=== PATIENT | female | born 1990 ===

== ENCOUNTER 2017-11-03 13:05 | Inpatient (IN) | payer OTHER ==
[2017-11-03] MEDS ORDERED: ELECTROLYTE-148 SOLN 1,000 ML IV SCH (13:30)
[2017-11-03] MEDS ORDERED: AMPICILLIN - 2 GM in SODIUM CHLORIDE 100 ML IVPB ONE (13:30)
[2017-11-03] MEDS ORDERED: AMPICILLIN SODIUM 2 GM VIAL ONE (13:39)
[2017-11-03] MEDS ORDERED: OXYTOCIN 20 UNITS in 0.9% NS 20 UNIT/1,000 ML INFUS.BAG IV ONE ×2 (13:43→14:13)
[2017-11-03] MEDS ORDERED: LIDOCAINE HCL 1% PRESERVATIVE FREE - 30ML VIAL ONE (13:44)
[2017-11-03 14:21] VITALS: BMI 24.8
[2017-11-03] MEDS: OXYTOCIN 20 UNITS in 0.9% NS 20 UNIT/1,000 ML INFUS.BAG IV SCH ×2 (14:30→16:00)
[2017-11-03] MEDS ORDERED: IBUPROFEN 600 MG TABLET (FP) PO ONE (14:39)
[2017-11-03] MEDS ORDERED: ACETAMINOPHEN 325 MG TABLET (FP) ONE (14:39)
[2017-11-03] MEDS: IBUPROFEN 600 MG TABLET (FP) PO PRN (14:45)
[2017-11-03] MEDS: ACETAMINOPHEN 325 MG TABLET (FP) PO PRN (14:45)
[2017-11-03] MEDS ORDERED: BENZOCAINE 20% 57 GM BOTTLE TP PRN (14:57)
[2017-11-03] MEDS ORDERED: BISACODYL 10 MG SUPP.RECT RC PRN (14:57)
[2017-11-03] MEDS ORDERED: oxyCODONE HCL 5 MG TABLET PO PRN (14:57)
[2017-11-03] MEDS ORDERED: METHYLERGONOVINE MALEATE 0.2 MG/1 ML AMP IM PRN (14:57)
[2017-11-03] MEDS ORDERED: BENZOCAINE 28 GM HEMORRHOIDAL OINTMENT TP PRN (14:57)
[2017-11-03] MEDS ORDERED: WITCH HAZEL 50% (TUCKS) 40 PAD/JAR PAD TP PRN (14:57)
[2017-11-03 15:05] LABS: ARTERIAL BLOOD GAS pH 7.31 (7.35-7.45)
[2017-11-03 15:06] LABS: ARTERIAL BLD GAS O2 SATURATION 16.5 % (90-98.9); ARTERIAL BLOOD GAS BASE EXCESS -1.1 meq/l (-2-2); ARTERIAL BLOOD GAS PCO2 52.2 mmHg (35-45); ARTERIAL BLOOD GAS PO2 16.5 mmHg (80-100)
[2017-11-03 15:07] LABS: VENOUS PC02 47.5 mmHg (38-52); VENOUS PH 7.35 (7.32-7.42); VENOUS PO2 20.7 mmHg (28-48)
--- NOTE | 2017-11-03 15:07 | HP ---
Past Medical History - Primary Care Physician PCP:: Kristi Dutton - Admission Chief Complaint: 27 yrs , 37.4 weeks twins gestation onset LP since 5.00AM & SROM since 12.30PM , admitted in active labor . Sono done on 10/31/17 reported Twins , Vx/Vx, 37.1 weeks gestation, bpp 8/8 for A& B baby, Miranda 6.7(A ) , 6.8(B), EFW 2419gm(A), 2720 gm(B). NST reactive for both babies . History of Present Illness: pnc with [facility] at [facility] followed by 2, [facility] . wt gain 33 lbs . pt was followed by sonograms for growth . Intial sono reported as Monochorionic dizygotic Twins . work Up AB Pos, Hbsag neg, Rpr nr, Rubella immune,Sickle neg, varicella immune, Hiv neg , Quaniferon not known, , 1 hr gtt 109 GBS unknown.Gc/Ct unknown she was monitored by NST Q1 week since 34 weeks. bpp at 34 weeks & again at 37 weeks History Source: Patient, Medical Record Limitations to Obtaining History: Language Barrier - Past Medical History TYPE MAPPER: No: Alzheimer's, CVA, Dementia, Migraine, Multiple Sclerosis, Peripheral Neuropathy, Parkinson's, Seizure, Syncope, TIA, Vertigo, Other Cardiovascular: No: AFIB, Aneurysm, Aortic Insufficiency, Aortic Stenosis, CAD, CHF, Deep Vein Thrombosis, HTN, Hyperlipdemia, PR, Mitral Insufficiency, Mitral Stenosis, Murmur, Pulmonary Hypertension, Other Pulmonary: No: Asthma Gastrointestinal: No: Ascites, Cancer, Constipation, Crohn's Disease, Diverticulitis, Diverticulosis, Esophageal Varices, Gastritis, GERD, GI Bleed, Hemorrhoids, Hiatal Hernia, Inflamatory Bowel Disease, Irritable Bowel Disease, Pancreatitis, Peptic Ulcer Disease, Ulcerative Colitis, Other Hepatobiliary: No: Hepatitis B Renal/: No: Renal Failure, Renal Inusuff, BPH, Cancer, Hematuria, Hemodialysis , Neurogenic Bladder, Renal Calculi, UTI, Other Reproductive: Yes: Other (tian 03/2016 NILM) ...: 3 ...Para: 2 ...Term: 2 (2 NSVD07/03/14& 08/31/16 ) ...: 0 ...Spon : 0 ...Induced : 0 ...Multiple Gestation: 0 ...LMP: 02/10/17 ... Weeks Gestation by Dates: 37.4 ...EDC by Dates: 11/20/17 ...EDC by Sono: 11/20/17 Heme/Onc: No: Anemia, B12 Deficiency, Bleeding Disorder, Cancer, Current Chemotherapy, Current Radiation Therapy, Hemochromatosis, Hypercoaguable State, Myeloproliferative Synd, Sickle Cell Disease, Sickle Cell Trait, Thrombocytopenia, Other Psych: No: Addictions, Anxiety, Bipolar, Depression, Panic, Psychosis, Schizophrenia, Other Rheumatology: No: Fibromyalgia, Gout, Lupus, Rheumatoid Arthritis, Sarcoidosis, Vasculitis, Other Endocrine: No: [place]'s Disease, [place]'s Disease, Diabetes Insipidus, Diabetes Mellitus, Hyperparathyroidism, Hyperthyroidism, Hypothyroidism, Osteopenia, SIADH, Other Dermatology: No: Basal Cell, Cellulitis, Eczema, Melanoma, Psoriasis, Squamous Cell, Other - Past Surgical History Past Surgical History: Yes: None Hx Myomectomy: No Hx Transabdominal Cerclage: No - Smoking History Smoking history: Never smoked Have you smoked in the past 12 months: No - Alcohol/Substance Use Hx Alcohol Use: No History of Substance Use: reports: None - Social History History of Recent Travel: No Home Medications - Allergies Allergies/Adverse Reactions: Allergies Allergy/AdvReac Type Severity Reaction Status Date / Time No Known Allergies Allergy Verified 11/03/17 14:03 - Home Medications Home Medications: Ambulatory Orders Ferrous Sulfate [Iron] 325 mg PO DAILY 10/24/17 Vit/Iron Fum/Folic AC [ Tablet] 1 tab PO DAILY 10/24/17 Physical Exam - Maternity Vital Signs: Vital Signs Temperature 98.6 F 11/03/17 14:03 Pulse Rate 66 11/03/17 14:03 Respiratory Rate 20 11/03/17 14:03 Blood Pressure 108/60 11/03/17 14:03 O2 Sat by Pulse Oximetry (%) Constitutional: Yes: Well Nourished, Moderate Distress Eyes: Yes: WNL HENT: Yes: WNL Neck: Yes: WNL Cardiovascular: Yes: WNL Lungs: Clear to auscultation Breast(s): Yes: Other (not examined) - Abdominal Exam/OB Fundal Height: 40 Number of Fetuses: Multiple Presentation: Twins (vertex/vertex) Contractions: Yes Regularity: Regular (2-3 min) Intensity: Strong Monitor Mode: External Heart Rate (range): 130/135 Heart Rate Location: RLQ (A baby RLQ, B baby LUQ) Category: I Accelerations: Uniform Decelerations: None - Vaginal Exam/OB Vaginal Bleediing: No Speculum Exam: No Dilatation (cm): 10 Effacement (%): 100 Amniotic Membrane Status: Ruptured Nitrazine Test: Positive Amniotic Fluid: Yes: Clear Presentation: Vertex/Position (exam at 14.00 hr) Station: +1 - Physical Exam Musculoskeletal: Yes: WNL Extremities: Yes: WNL. No: Calf Tenderness Edema: Yes Edema: LLE: 2+ (upto knee), RLE: 2+ (upto knee) Integumentary: Yes: WNL Deep Tendon Reflex Grade: Normal +2 ...Motor Strength: WNL Psychiatric: Yes: WNL, Alert, Oriented - Labs Lab Results: Laboratory Tests 10/31/17 10/31/17 10/31/17 11:00 11:30 11:30 WBC 6.3 D RBC 3.95 Hgb 12.2 Hct 37.1 Plt Count 142 Neutrophils % 63.4 Lymphocytes % 27.7 D PT with INR 9.80 L INR 0.87 PTT (Actin FS) 26.5 L Sodium Potassium Chloride Carbon Dioxide BUN Creatinine Random Glucose AST ALT Urine Protein Negative RPR Titer 10/31/17 10/31/17 11:30 11:30 WBC RBC Hgb Hct Plt Count Neutrophils % Lymphocytes % PT with INR INR PTT (Actin FS) Sodium 140 Potassium 4.2 Chloride 107 Carbon Dioxide 24 BUN 11 Creatinine 0.7 Random Glucose 58 L AST 29 ALT 21 Urine Protein RPR Titer Nonreactive Problem List - Problems (1) with 37 weeks completed gestation Code(s): Z3A.37 - 37 WEEKS GESTATION OF (2) Twin gestation in third trimester Code(s): O30.003 - TWIN PREG, UNSP NUM PLCNTA & AMNIO SACS, THIRD TRIMESTER Qualifiers: Multiple gestation type: monochorionic and diamniotic Qualified Code(s): O30.033 - Twin , monochorionic/diamniotic, third trimester (3) Labor established Code(s): KGK7114 - Assessment/Plan 27 yrs , 37.4/7 weeks twin gestation vx/VX gbs unknown in active labor gbs prophylaxis with one dose of IV 2gm ampicillin was given Plan vaginal delivery anticipated
[2017-11-03 15:08] LABS: ARTERIAL BLD GAS O2 SATURATION 86.9 % (90-98.9); ARTERIAL BLOOD GAS BASE EXCESS -2.4 meq/l (-2-2); ARTERIAL BLOOD GAS PCO2 40.8 mmHg (35-45); ARTERIAL BLOOD GAS PO2 44.3 mmHg (80-100); ARTERIAL BLOOD GAS pH 7.36 (7.35-7.45)
--- NOTE | 2017-11-03 15:45 | PN ---
Delivery - Delivery Vaginal Delivery: Spontaneous (twins vaginal delivery . A baby delivered at 2.11pm ,in Vx MELLISSA position, cord around neckx1 unwinded before delivery of shoulder. cord clamped cut cord segment sent for cord gas & cord blood collected , cord marked with one cord clamp. Dr Abel present in the room, US was done vx presentation noted , Pelvic exam was done vx position with Intact membranes were felt in the pelvis at -3/-4 station. Nurse was requested to start Pitocin Augmentation . At 2.16PM Arom for 2 nd sac was done , station was -2 ,,AT 2.24 PM patient pushed the B baby out in OP position, cord around neckx1 was untangled ,suction was done, cord clamped cut, cord segment was sent for cord gas & cord blood was collected , B cord was marked with 2 cord clamps . Placenta delivered spontaneously .without problems) Type of Anesthesia: None Episiotomy/Laceration: None EBL (cc): 350 Delivery, Single - [place] Feeding Plan Initial Plan: Elected not to breastfeed exclusively throughout hospitalization Delivery, Multiple Births - Stages of Labor First Stage Date: 11/03/17 Time: 05:00 Second Stage Date: 11/03/17 Time: 14:00 Delivery Baby "A" Date: 11/03/17 Time: 14:11 Delivery Baby "B" Date: 11/03/17 Time: 14:24 Placenta/Membranes "A" Date: 11/03/17 Time: 14:30 Placenta/Membranes "B" Date: 11/03/17 Time: 14:30 - Condition of Multiple Births 1 (A) Inside Sales Account Executive/Lumber Scaler Present: Yes Inside Sales Account Executive: Jesusita Liu Gender: Female Weight: 5 lb 8 oz Position: Left, OA Total Hours ROM (HRS/MINS): 2/0 Placenta: Yes: Spontaneous, Uterine Exploration [place] 2 (B) Inside Sales Account Executive/Lumber Scaler Present: Yes Inside Sales Account Executive: Jesusita Liu Infant Gender: Female Weight: 5 lb 9 oz Position: OP Total Hours ROM (HRS/MINS): 0/14 - [place] 1 (A) 1 Minute Score: 9 1 (A) 5 Minutes Score: 9 [place] 2 (B) 1 Minute Score: 9 [place] 2 (B) 5 Minutes Score: 9 Remarks - Remarks Remarks: 27 yrs , 37.4/7 weeks Twin gestation , admitted in active labor . PNC with [facility] , at [facility] & 2, [facility] GBS unknown, she receieved 2 gm IV Ampicillin . physical therapist assistant & anesthesiologist & storekeeper engineering al, were present at the time of delivery intrapartum course was uneventful
[2017-11-03] MEDS: FERROUS SO4 325 MG TABLET (FP) PO SCH (20:57)
[2017-11-04] MEDS: IBUPROFEN 600 MG TABLET (FP) PO PRN ×2 (04:05→18:24)
[2017-11-04] MEDS: ACETAMINOPHEN 325 MG TABLET (FP) PO PRN ×2 (04:06→18:23)
[2017-11-04 07:32] LABS: BASO % 0.2 % (0-2.0); EOS % 0.2 % (0-4.5); HEMATOCRIT 36.2 % (32.4-45.2); LYMPH % 18.9 % (8-40); MCH 31.3 pg (25.7-33.7); MCHC 33.3 g/dl (32.0-36.0); MEAN PLT VOLUME 9.5 fl (7.5-11.1); MONO % 7.2 % (3.8-10.2); NEUT % 73.5 % (42.8-82.8); PLATELET COUNT 126 K/MM3 (134-434); RBC 3.85 M/mm3 (3.60-5.2); RDW 12.7 % (11.6-15.6); WHITE BLOOD COUNT 9.3 K/mm3 (4.0-10.0)
[2017-11-04] MEDS: FERROUS SO4 325 MG TABLET (FP) PO SCH ×2 (08:26→18:23)
[2017-11-04] MEDS ORDERED: FLU VACC QS2017-18 36MOS UP/PF 60 MCG/0.5 ML SYRINGE IM ONE (10:00)
[2017-11-04] MEDS ORDERED: DIPHTH,PERTUSS(ACELL),TET 0.5 ML DISP.SYRIN IM ONE (10:00)
[2017-11-04] MEDS: PRENATAL VITAMINS W/ FOLIC ACID TABLET (FP) PO SCH (10:12)
--- NOTE | 2017-11-04 11:38 | PN ---
Post Progress Note - Subjective Subjective: no c/o cramps Post Day: 1 Type of Delivery: (Twin vaginal delivery) Vital Signs: Vital Signs Temperature 98.6 F 11/04/17 06:00 Pulse Rate 52 L 11/04/17 06:00 Respiratory Rate 18 11/04/17 06:00 Blood Pressure 119/76 11/04/17 06:00 O2 Sat by Pulse Oximetry (%) 100 11/03/17 16:00 Breast Exam: Yes: Soft, Other (breast & bottle feeding ). No: Engorged Uterus: Yes: Fundus Firm, Fundus below umbilicus Lochia: Yes: Rubra Lochia, amount: Moderate Extremities: Yes: Calves non-tender Perineum: Yes: Intact Activity: Ambulating - Labs Labs: CBC WBC 9.3 K/mm3 (4.0-10.0) D 11/04/17 07:05 RBC 3.85 M/mm3 (3.60-5.2) 11/04/17 07:05 Hgb 12.0 GM/dL (10.7-15.3) 11/04/17 07:05 Hct 36.2 % (32.4-45.2) 11/04/17 07:05 MCV 94.0 fl (80-96) 11/04/17 07:05 MCH 31.3 pg (25.7-33.7) 11/04/17 07:05 MCHC 33.3 g/dl (32.0-36.0) 11/04/17 07:05 RDW 12.7 % (11.6-15.6) 11/04/17 07:05 Plt Count 126 K/MM3 (134-434) L 11/04/17 07:05 MPV 9.5 fl (7.5-11.1) 11/04/17 07:05 Neutrophils % 73.5 % (42.8-82.8) 11/04/17 07:05 Lymphocytes % 18.9 % (8-40) D 11/04/17 07:05 Monocytes % 7.2 % (3.8-10.2) 11/04/17 07:05 Eosinophils % 0.2 % (0-4.5) 11/04/17 07:05 Basophils % 0.2 % (0-2.0) 11/04/17 07:05 Problem List - Problems (1) with 37 weeks completed gestation Code(s): Z3A.37 - 37 WEEKS GESTATION OF (2) Twin gestation in third trimester Code(s): O30.003 - TWIN PREG, UNSP NUM PLCNTA & AMNIO SACS, THIRD TRIMESTER Qualifiers: Multiple gestation type: monochorionic and diamniotic Qualified Code(s): O30.033 - Twin , monochorionic/diamniotic, third trimester (3) Labor established Code(s): [id number] - Assessment/Plan stable. plan discharge tomorrow.
[2017-11-04] MEDS ORDERED: SENNOSIDES/DOCUSATE COMBO (SENNA PLUS) TABLET (UD) PO PRN (22:00)
[2017-11-05] MEDS: FERROUS SO4 325 MG TABLET (FP) PO SCH (09:46)
[2017-11-05] MEDS: PRENATAL VITAMINS W/ FOLIC ACID TABLET (FP) PO SCH (09:46)
--- NOTE | 2017-11-05 09:56 | DS ---
Physical Exam-MACHINE COREMAKER Vital Signs: Vital Signs Temperature 98.5 F 11/04/17 21:19 Pulse Rate 55 L 11/04/17 21:19 Respiratory Rate 18 11/04/17 21:19 Blood Pressure 112/63 11/04/17 21:19 O2 Sat by Pulse Oximetry (%) 100 11/03/17 16:00 Constitutional: Yes: Well Nourished Eyes: Yes: Conjunctiva Clear HENT: Yes: Atraumatic Neck: Yes: Supple Cardiovascular: Yes: Regular Rate and Rhythm Respiratory: Yes: Regular Gastrointestinal: Yes: Normal Bowel Sounds ...Rectal Exam: Yes: WNL Pelvis: Yes: WNL External Genitalia: Yes: Normal Vaginal Exam: Yes: Normal Cervix: Yes: Normal Uterus: Yes: Firm ....Post : Yes: Uterus firm, Moderate lochia serosa Breast(s): Yes: WNL Musculoskeletal: Yes: WNL Extremities: Yes: WNL Integumentary: Yes: WNL Neurological: Yes: Alert, Oriented Psychiatric: Yes: Alert, Oriented Labs: CBC, BMP 11/04/17 07:05 Delivery - Delivery Vaginal Delivery: Spontaneous (twins vaginal delivery . A baby delivered at 2.11pm ,in Vx MELLISSA position, cord around neckx1 unwinded before delivery of shoulder. cord clamped cut cord segment sent for cord gas & cord blood collected , cord marked with one cord clamp. Dr Abel present in the room, US was done vx presentation noted , Pelvic exam was done vx position with Intact membranes were felt in the pelvis at -3/-4 station. Nurse was requested to start Pitocin Augmentation . At 2.16PM Arom for 2 nd sac was done , station was -2 ,,AT 2.24 PM patient pushed the B baby out in OP position, cord around neckx1 was untangled ,suction was done, cord clamped cut, cord segment was sent for cord gas & cord blood was collected , B cord was marked with 2 cord clamps . Placenta delivered spontaneously .without problems) Type of Anesthesia: None Episiotomy/Laceration: None EBL (cc): 350 Delivery, Single - Feeding Plan Initial Plan: Elected not to breastfeed exclusively throughout hospitalization Delivery, Multiple Births - Stages of Labor First Stage Date: 11/03/17 Time: 05:00 Second Stage Date: 11/03/17 Time: 14:00 Delivery Baby "A" Date: 11/03/17 Time: 14:11 Delivery Baby "B" Date: 11/03/17 Time: 14:24 Placenta/Membranes "A" Date: 11/03/17 Time: 14:30 Placenta/Membranes "B" Date: 11/03/17 Time: 14:30 - Condition of Multiple Births [place] 1 (A) Javascript Ui Developer/Wastewater Plant Operator Present: Yes Javascript Ui Developer: Jesusita Liu Gender: Female Weight: 5 lb 8 oz Position: Left, OA Total Hours ROM (HRS/MINS): 2/0 2 (B) Javascript Ui Developer/Wastewater Plant Operator Present: Yes Javascript Ui Developer: Jesusita Liu Infant Gender: Female Weight: 5 lb 9 oz Position: OP Total Hours ROM (HRS/MINS): 0/14 - [place] 1 (A) 1 Minute Score: 9 1 (A) 5 Minutes Score: 9 [place] 2 (B) 1 Minute Score: 9 [place] 2 (B) 5 Minutes Score: 9 Discharge Summary Reason For Visit: LABOR ADMIT Current Active Problems Labor established (Acute) Normal spontaneous vaginal delivery (Acute) with 37 weeks completed gestation (Acute) Twin gestation in third trimester (Acute) Procedures: Principal: Normal spontaneous vaginal delivery Hospital Course: Patient presents and delivered twins by normal spontaneous vaginal delivery. No blood transfusion required. Condition: Stable - Instructions Diet, Activity, Other Instructions: Post Instructions DIET: Continue good diet high in protein, calcium, and iron rich foods. Drink at least eight (8) glasses of water daily in addition to other fluids. ___ Regular diet MEDICATIONS: Continue vitamins and iron as previously directed. Motrin and Tylenol may be taken for minor discomfort. ACTIVITY: Mild to moderate exercise may be started in two (2) weeks. Take frequent rest periods. Resume normal activity after six (6) week check up. WOUND CARE OF OPERATIVE SITE: Continue use of perineal bottle until vaginal discharge stops. Keep area clean. Shower daily. Keep abdominal wound dry. Report any drainage or redness to physician. Tub baths, tampons and douches are not permitted for 6 weeks. _ct Breast feeding & or Bottle feeding BREAST CARE: (For those that are not breast feeding): If engorgement occurs: Wear tight fitting bra. Take Tylenol or Motrin for pain. Apply cold packs (ice in bags to each breast ) FAMILY PLANNING: There are many control alternatives to pursue and they should be discussed at your first office visit. You may resume sexual activity after your six (6) week check up. (Remember, breast feeding is not a contraceptive) NEXT PHYSICIAN APPOINTMENT: Be certain to call for a six (6) week appointment, unless otherwise directed. call [phone] for appt Call Clinic or got to Emergency Dept if you have any of the following: Heavy vaginal bleeding Painful urination Leg pain Unusual odor noted to vaginal bleeding High fever Red streaking noted on breast Referrals: Kristi Dutton MD [Staff Physician] - Disposition: HOME - Home Medications Comprehensive Discharge Medication List: Ambulatory Orders Ferrous Sulfate [Iron] 325 mg PO DAILY 10/24/17 Vit/Iron Fum/Folic AC [ Tablet] 1 tab PO DAILY 10/24/17 Acetaminophen [Tylenol .Regular Strength -] 650 mg PO Q3H PRN tablet 11/04/17 Ferrous Sulfate [Feosol] 325 mg PO BIDWM tab 11/04/17 Ibuprofen [Motrin -] 200 mg PO Q4H PRN tablet 11/04/17 Vitamins (Sjr) - 1 tab PO DAILY tablet 11/04/17
[2017-11-05 10:40] VITALS: BP 119/72; PULSE 53; TEMP 99
--- NOTE | 2017-11-13 14:37 | PATH ---
Surgical Pathology Report Patient Name: EMILIE MACHADO [facility]. Rec. #: [id number] /Age/Gender: 1990 (Age: 27) / F Account: [id number] Location: [facility] OBS/VIDEO PRODUCTION ENGINEER Taken: 11/03/2017 Received: 11/04/2017 Reported: 11/13/2017 Physicians: Kristi Dutton M.D. Specimen(s) Received PLACENTA Clinical History , twins Final Diagnosis TWIN PLACENTA, DELIVERY: 631 g THIRD TRIMESTER DIAMNIOTIC DICHORIONIC TWIN PLACENTA WITH TRIVASCULAR UMBILICAL CORDS (2) AND UNREMARKABLE PLACENTAL MEMBRANES. Electronically Signed Eden Dykes M.D. Gross Description Received in formalin labeled "placenta," is a 631 g twin placenta comprised of 2 fused discs, by dividing membranes. There is one clip marking the umbilical cord arbitrarily designated placenta "A" and 2 clips marking the umbilical cord arbitrarily designated placenta "B." The specimen measures 19.0 x 15.5 x 2.6 cm. The dividing membranes are faith and opaque. The membranes of placenta "A" are faith, translucent with focal opacities and insert marginally. The umbilical cord of placenta "A" measures 17 cm in length and 0.9 cm in diameter. The cord inserts at the margin. No true knots or strictures are identified. Cut surface of the umbilical cord reveals 3 vessels. The membranes of placenta "B" are faith, translucent with focal opacities and insert marginally. The umbilical cord of placenta "B" measures 13 cm in length and averages 0.9 cm in diameter. The cord displays velamentous insertion. No true knots or strictures are identified. Cut surface of the umbilical cord reveals 3 vessels. The surface is esposito blue with moderate fibrin deposition and appropriate caliber vessels. The maternal surface is red-brown with focal defects. Sectioning reveals red-brown, spongy parenchyma. No lesions are identified. Instrument Repairer Steam Plant sections are submitted in 7 cassettes as follows: 1-placenta "A" membrane roll and umbilical cord; 2-3-full thickness sections of placenta "A"; 4-dividing membranes; 5-placenta "B" membrane rolls and umbilical cord; 6-7- full thickness sections of placenta "B." /11/06/201711/06/2017
== END 2017-11-05 11:51 | disposition home or self-care (01) | DRG 560 ==
LOC: JDEL 13:05 → JLDR 13:30 → J3W 16:36
PROVIDERS: ADMIT Obstetrics & Gynecology; ATTEND Obstetrics & Gynecology
PROC: 10E0XZZ Delivery of Products of Conception, External Approach (ICD-10-PCS; principal; 2017-11-03)
DX: O30.003 Twin pregnancy, unspecified number of placenta and unspecified number of amniotic sacs, third trimester (principal); Z3A.37 37 weeks gestation of pregnancy; Z37.2 Twins, both liveborn
CPT/HCPCS: 36415; 36600; 71046-TC-FY; 82803; 85025; 88307-TC; 90686; 90715; G0008

== ENCOUNTER 2019-05-07 01:25 | Inpatient (IN) | payer OTHER | END 2019-05-09 11:15 | disposition home or self-care (01) | LOC: JLDR 01:25 → J3W 08:49 ==